=== PATIENT | female | born 1970 | race Caucasian/White ===

== ENCOUNTER 2018-12-06 00:56 | Emergency (ER) | payer SELFPAY ==
[~2018-12-06] VITALS: Ht 152.4 cm; Wt 70.6 kg
[~2018-12-06 00:56] MED LIST: PREN-39
[2018-12-06 00:59] VITALS: BP 169/83; PULSE 87; RESP 18; Ht 152.4 cm; Wt 70.6 kg
== END 2018-12-06 03:05 | disposition left against medical advice (07) ==
LOC: FTE 00:56
DX: Z53.21 Procedure and treatment not carried out due to patient leaving prior to being seen by health care provider (principal)